=== PATIENT | male | born 1990 | race Caucasian/White ===

== ENCOUNTER 2017-10-29 17:46 | Emergency (ER) | payer BC ==
[2017-10-29 18:26] VITALS: BP 148/97
--- NOTE | 2017-10-29 19:51 | RAD ---
INDICATION: Left hand injury. TECHNIQUE: 4 views of the left hand were obtained. FINDINGS: There is soft tissue swelling noted dorsal to the metacarpal bones. On one view there is a fracture visualized at the base of the fifth metacarpal extending to the proximal articular margin. There is no evidence for displacement. Joint spaces appear maintained. IMPRESSION: FINDINGS MOST CONSISTENT WITH A NONDISPLACED INTRA-ARTICULAR FRACTURE BASE OF THE FIFTH METACARPAL.
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
== END 2017-10-29 20:14 | disposition home or self-care (01) ==
LOC: UCEAST 17:46
DX: S62.347A Nondisplaced fracture of base of fifth metacarpal bone, left hand, initial encounter for closed fracture (principal); V00.831A Fall from motorized mobility scooter, initial encounter; Y93.89 Activity, other specified; Y92.9 Unspecified place or not applicable
CPT/HCPCS: 99202; G0463